=== PATIENT | female | born 1970 | race Hispanic/Latino ===

== ENCOUNTER → 2025-01-07 | Day surgery (SDC) | payer OTHER ==
[~2025-01-07] MED LIST: LACTATED RINGER'S 1,000 ML ONE; LIDOCAINE HCL 2% LOCAL INJ 5 ML SDV VIAL INJ ONE; LISINOPRIL20 MG PO; METFORMIN HCL500 MG PO; MIDAZOLAM HCL 2 MG/2 ML VIAL ONE; PROPOFOL IV EMULSION 0 ML IV ONE; PROPOFOL IV EMULSION 10 MG/ML 20 ML VIAL ONE
[2025-01-07 15:44] VITALS: TEMP 98.2
[2025-01-07 16:15] VITALS: BP 146/86; PULSE 60; RESP 16; O2SAT 99
== END | disposition home or self-care (01) ==
LOC: OR 11:56
PROVIDERS: ATTEND Internal Medicine Gastroenterology
DX: Z12.11 Encounter for screening for malignant neoplasm of colon (principal); K64.8 Other hemorrhoids; I10 Essential (primary) hypertension; E11.9 Type 2 diabetes mellitus without complications; E66.813 Obesity, class 3; Z68.41 Body mass index [BMI] 40.0-44.9, adult; Z79.84 Long term (current) use of oral hypoglycemic drugs; Z79.899 Other long term (current) drug therapy; Z01.810 Encounter for preprocedural cardiovascular examination
CPT/HCPCS: 36415; 45378; 82948; 93005; J2003; J2250